=== PATIENT | male | born 1975 | race Caucasian/White ===

== ENCOUNTER 2021-02-16 07:26 | Outpatient (REF) | payer OTHER, SELFPAY ==
[2021-02-16 09:14] LABS: COVID-19 Test Negative (Negative); IDNOW Serial# 9DD0AD1C
== END 2021-02-16 07:27 | disposition home or self-care (01) ==
LOC: HO.LAB 07:26
PROVIDERS: PCP Internal Medicine; Visit Provider Internal Medicine
DX: Z20.822 Contact with and (suspected) exposure to COVID-19 (principal)
CPT/HCPCS: 36415; 87635

== ENCOUNTER 2021-03-15 11:11 | Outpatient (REF) | payer OTHER, SELFPAY ==
[2021-03-15 12:18] LABS: Binax Now Covid-19 Ag Negative (Negative)
[2021-03-15 12:19] LABS: Binax Internal Control QC Valid; Binax Performed by: N
== END 2021-03-15 11:12 | disposition home or self-care (01) ==
LOC: HO.LAB 11:11
PROVIDERS: Visit Provider Internal Medicine
DX: Z20.822 Contact with and (suspected) exposure to COVID-19 (principal)
CPT/HCPCS: C9803

== ENCOUNTER 2021-03-16 11:50 | Outpatient (REF) | payer OTHER, SELFPAY | END 2021-03-16 11:51 | disposition home or self-care (01) | LOC: HO.LAB 11:50 | PROVIDERS: Visit Provider Internal Medicine | DX: Z13.89 Encounter for screening for other disorder (principal) | CPT/HCPCS: 87635 ==